=== PATIENT | female | born 1960 | race Caucasian/White ===

== ENCOUNTER 2021-02-13 10:06 | Outpatient (CLI) | payer OTHER, SELFPAY ==
--- NOTE | ~2021-02-13 | MR_ITS ---
EXAMINATION: MR lumbar spine wo con DATE: 02/13/2021 12:50 INDICATION: Low back pain. TECHNIQUE: Magnetic resonance imaging (MRI) of the lumbar spine was performed without intravenous con trast. Sequences included sagittal T2-weighted FSE, sagittal T2-weighted FS FSE, sagittal T1-weighted FSE, and axial T2-weighted FSE. COMPARISON: None FINDINGS: There is 5 degrees levocurvature of lumbar spine. There is a chronic burst fracture of L1 w ith 2/5 loss of height and retropulsion of bone 2 mm into central spinal canal. There is a chronic bu rst fracture of L4 with 1/5 loss of height and retropulsion of bone 2 mm into central spinal canal. T here is mildly decreased disc height at L1-L2. The distal spinal cord signal intensity is normal. The conus medullaris is at L1-L2. There are cysts in left kidney measuring up to 9 mm. The following dis c levels are specifically discussed: L1-L2: The disc is bulging. There is mild bilateral facet joint osteoarthritis. There is no neural fo raminal stenosis. There is mild central canal stenosis. L2-L3: The disc is bulging. There is severe bilateral facet joint osteoarthritis. There is mild bilat eral neural foraminal stenosis. There is mild central canal stenosis. L3-L4: The disc is bulging and has an annular fissure. There is severe bilateral facet joint osteoart hritis. There is mild bilateral neural foraminal stenosis. There is mild central canal stenosis. L4-L5: The disc is bulging and has an annular fissure. There is severe bilateral facet joint osteoart hritis. There is mild bilateral neural foraminal stenosis. There is mild central canal stenosis. L5-S1: The disc is bulging and has an annular fissure. There is severe bilateral facet joint osteoart hritis. There is mild bilateral neural foraminal stenosis. There is mild central canal stenosis. IMPRESSION: 1. Mild lumbar spondylosis. Reviewed, dictated and finalized at location B. IMPRESSION: 1. Mild lumbar spondylosis.
== END 2021-02-13 10:07 | disposition home or self-care (01) ==
LOC: CHSIMG 10:08
PROVIDERS: PCP Internal Medicine; Visit Provider Internal Medicine
DX: M54.5 Low back pain (principal)
CPT/HCPCS: 72148

== ENCOUNTER → 2021-03-04 08:22 | Outpatient (CLI) | payer BC, SELFPAY ==
--- NOTE | ~2021-03-04 | MR_ITS ---
EXAMINATION: MR thoracic spine wo con EXAM DATE: 03/04/2021 09:12 INDICATION: Degeneration and stenosis. Mid back pain. States injury February 01, 2021. TECHNIQUE: Multi-sequential, multiplanar MR images of the thoracic spine were obtained without contra st. Sagittal T1, T2, T2 fat saturation, axial T2 weighted images reviewed. There is no prior study for comparison. FINDINGS: There is a T11 burst fracture with moderate loss of this vertebral body height centrally an d anteriorly, mild to moderate loss posteriorly, and about 3 mm superior endplate retropulsion. This is only causing mild central canal stenosis. Edema within the vertebral body suggests this is acute t o subacute. The thoracic spinal canal is otherwise widely patent. Thoracic neural foramen also widely patent. No other thoracic fractures. 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 The spinal cord signal intensity and intrinsic morphology is normal. Mild diffuse thoracic disc disease. Paraspinal soft tis alfie is unremarkable. Azygos fissure. IMPRESSION: 1. Acute to subacute T11 burst fracture. 2. Mild thoracic facet arthropathy. Reviewed, dictated and finalized at location A.
== END ==
DX: S22.080A Wedge compression fracture of T11-T12 vertebra, initial encounter for closed fracture (principal); M48.04 Spinal stenosis, thoracic region; M62.830 Muscle spasm of back; X58.XXXA Exposure to other specified factors, initial encounter
CPT/HCPCS: 72146

== ENCOUNTER → 2021-05-07 12:16 | Outpatient (CLI) | payer BC, SELFPAY ==
--- NOTE | ~2021-05-07 | MR_ITS ---
EXAMINATION: MR thoracic spine wo con EXAM DATE: 05/07/2021 13:16 INDICATION: Closed wedge compression fracture of T11 vertebra closed wedge compression fx of T11 . TECHNIQUE: Multi-sequential, multiplanar MR images of the thoracic spine were obtained without contra st. Sagittal T1, T2, T2 fat saturation, axial T2 weighted images reviewed. Comparison is made to ambreen or examination from 03/04/2021. FINDINGS: There is a T11 burst fracture with moderate loss of this vertebral body height centrally an d anteriorly, mild to moderate loss posteriorly, and about 3 mm superior endplate retropulsion. This is only causing mild central canal stenosis. Height and retropulsion appear unchanged. There is edema within the vertebral body with interval improvement. There is been interval development of edema wit hin the pedicles, and also interval development of vacuum disc phenomenon. The thoracic spinal canal neural foramen are otherwise widely patent. 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 The spinal cord s ignal intensity and intrinsic morphology is normal. Mild diffuse thoracic disc disease and facet arth ropathy. Paraspinal soft tissue is unremarkable. Mild chronic compression fracture superior endplate of L1. IMPRESSION: 1. Subacute T11 burst fracture, height and mild retropulsion stable. 2. Mild thoracic spondylosis. Reviewed, dictated and finalized at location A.
== END ==
DX: S22.080A Wedge compression fracture of T11-T12 vertebra, initial encounter for closed fracture (principal); X58.XXXA Exposure to other specified factors, initial encounter; M47.894 Other spondylosis, thoracic region
CPT/HCPCS: 72146

== ENCOUNTER → 2022-03-17 16:00 | Outpatient (CLI) | payer BC, SELFPAY ==
--- NOTE | ~2022-03-17 | MR_ITS ---
EXAMINATION: MR lumbar spine wo con DATE: 03/17/2022 16:44 INDICATION: Low back pain. TECHNIQUE: Magnetic resonance imaging (MRI) of the lumbar spine was performed without intravenous con trast. Sequences included sagittal T2-weighted FSE, sagittal T2-weighted FS FSE, sagittal T1-weighted FSE, and axial T2-weighted FSE. COMPARISON: Lumbar spine MRI 02/13/2021 FINDINGS: There is 3 degrees levocurvature of lumbar spine. There is a chronic burst fracture of L1 w ith 2/5 loss of height and retropulsion of bone 2 mm into central spinal canal. There is a chronic bu rst fracture of L3 with 2/5 loss of height and retropulsion of bone 3 mm into central canal stenosis, new from 02/13/2021. There is a chronic burst fracture of L4 with 1/5 loss of height and retropulsion of bone 2 mm into central spinal canal. There is mildly decreased disc height at L1-L2. The distal s rich cord signal intensity is normal. The conus medullaris is at L1-L2. The following disc levels ar e specifically discussed: L1-L2: The disc is bulging. There is mild bilateral facet joint osteoarthritis. There is no neural fo raminal stenosis. There is mild central canal stenosis. L2-L3: The disc is bulging. There is severe bilateral facet joint osteoarthritis. There is mild bilat eral neural foraminal stenosis. There is mild central canal stenosis. L3-L4: The disc is bulging and has an annular fissure. There is severe bilateral facet joint osteoart hritis. There is mild bilateral neural foraminal stenosis. There is mild central canal stenosis. L4-L5: The disc is mildly bulging. There is severe bilateral facet joint osteoarthritis. There is mil d bilateral neural foraminal stenosis. There is no central canal stenosis. L5-S1: There is a right foraminal protrusion. There is severe bilateral facet joint osteoarthritis. T here is mild bilateral neural foraminal stenosis. There is no central canal stenosis. IMPRESSION: 1. Mild lumbar spondylosis, stable from 02/13/2021. Reviewed, dictated and finalized at location A.
--- NOTE | ~2022-03-17 | MR_ITS ---
EXAMINATION: MR thoracic spine wo con DATE: 03/17/2022 16:37 INDICATION: Upper back pain. TECHNIQUE: Magnetic resonance imaging (MRI) of the thoracic spine was performed without intravenous c ontrast. Sagittal localizer T1-weighted FSE of the cervical spine was obtained. Thoracic spine sequen venu included sagittal T2-weighted FSE, sagittal T1-weighted FSE, sagittal T2-weighted FS FSE, and axi al T2-weighted FSE. COMPARISON: Thoracic spine MRI 05/07/2021 FINDINGS: There is 11 degrees dextroscoliosis of thoracic spine. There is a chronic burst fracture of T11 with 3/5 loss of height, retropulsion of bone 3 mm into central spinal canal, and changes of gabriella tebroplasty. There is a chronic compression fracture of T7 with 2/5 loss of height. There is mildly d ecreased disc height at T5-T6, T6-T7, T7-T8, and T10-T11. The discs do not extend beyond the endplate margins. There is multilevel facet joint osteoarthritis, severe on the right from C7-T1 through T5-T 6 and on the left from T6-T7 through T8-T9. On the right, there is mild neural foraminal stenosis at T4-T5, T5-T6, and T9-T10. On the left, there is mild neural foraminal stenosis at T7-T8, T8-T9, and T 9-T10. At T11, there is mild central canal stenosis with ventral indentation of the spinal cord. The spinal cord signal intensity is normal. IMPRESSION: 1. Mild thoracic spondylosis. 2. Thoracic dextroscoliosis. Reviewed, dictated and finalized at location A.
== END ==
PROVIDERS: PCP Family Medicine
DX: M47.896 Other spondylosis, lumbar region (principal); M47.894 Other spondylosis, thoracic region
CPT/HCPCS: 72146; 72148